=== PATIENT | male | born 1990 | race Hispanic/Latino ===

== ENCOUNTER 2020-03-21 22:28 | Emergency (ER) | payer SELFPAY ==
[~2020-03-21] VITALS: Ht 172.7 cm; Wt 79.4 kg
[2020-03-21] MEDS ORDERED: POLYMYXIN B-TMP10 ML OS (22:55)
== END 2020-03-22 00:08 | disposition home or self-care (01) ==
LOC: ED 22:28
DX: H20.9 Unspecified iridocyclitis (principal); F17.200 Nicotine dependence, unspecified, uncomplicated; Z88.0 Allergy status to penicillin; Z79.899 Other long term (current) drug therapy
CPT/HCPCS: 99283

== ENCOUNTER 2021-06-06 15:37 | Emergency (ER) | payer OTHER ==
[~2021-06-06] VITALS: Ht 170.2 cm; Wt 74.8 kg
[~2021-06-06 15:37] MED LIST: DOXYCYCLINE HY100 MG PO; POLYMYXIN B-TMP10 ML OS
--- OUTSIDE RECORDS SUMMARY | 2021-06-06 15:40 | XMS ---
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 Fernando has no Care Guidelines for this patient. Sakina VISIT COUNT (12 MO.) 2 CARLOS Don TOTAL 2 NOTE: Visits indicate total known visits. ED/C VISIT TRACKING (12 MO.) 06/06/2021 15:38 [facility] TYPE: Emergency COMPLAINT: - POSS SEIZURE 03/17/2021 01:50 [facility] TYPE: Emergency COMPLAINT: - SKIN INFECTION DIAGNOSES: - Nicotine dependence, unspecified, uncomplicated - Allergy status to penicillin - Follicular disorder, unspecified INPATIENT VISIT TRACKING (12 MO.) No inpatient visits to display in this time frame [email or web address]
--- NOTE | 2021-06-06 16:14 | EKG ---
[facility] [address] [facility] [address] [place], [place] [address] Signed Normal sinus rhythm Normal ECG No previous ECGs available Confirmed by ADRIÁN AN MD ([id number] on 06/06/2021 4:14:26 PM Electronically Signed By: ADRIÁN AN MD 06/06/21 1614 PATIENT NAME: VI GRACIA Electrocardiogram DATE OF : 89 PHYSICIAN: ADRIÁN AN MD REPORT #: [id number] REPORT IS CONFIDENTIAL AND NOT TO BE RELEASED WITHOUT AUTHORIZATION
== END 2021-06-06 18:54 | disposition home or self-care (01) ==
LOC: ED 15:37
DX: R55 Syncope and collapse (principal); F17.200 Nicotine dependence, unspecified, uncomplicated; Z88.0 Allergy status to penicillin
CPT/HCPCS: 80053; 83735; 84484; 85025; 93005; 93010; 96360; 99284-25; J7030